=== PATIENT | male | born 1980 | race Caucasian/White ===

== ENCOUNTER 2017-09-02 10:59 | Emergency (ER) | payer MEDICARE, SELFPAY ==
[2017-09-02 11:01] VITALS: BP 127/71; PULSE 80; RESP 16; TEMP 36.9; O2SAT 100; BMI 26.3
--- NOTE | 2017-09-02 11:07 | ED.RN ---
pt has flat effect in triage and was unclear as to reason for visit. He stated that anxiety meds cause him to have suicidal thoughts. He currently has no thoughts of harming himself. Nurse providing care was informed about his odd behavior. Justyn Soriano rn
--- NOTE | 2017-09-02 11:21 | ED.RN ---
PT TAKES MANY DIFFERENT COMBINATIONS OF VITAMINS, SUPPLEMENTS AND ESSENTIAL OILS.
--- NOTE | 2017-09-02 11:25 | CT_ITS ---
STUDY: CT ABDOMEN AND PELVIS WITHOUT CONTRAST REASON FOR EXAM: Male, 36 years old. Left lower quadrant abdominal pain. RADIATION DOSAGE (If Supplied By Facility): CTDIvol = ( 6.53 ) mGy, DLP = ( 345.98 ) mGycm TECHNIQUE: Transaxial images were obtained from the dome of the diaphragm to the symphysis pubis without oral contrast, and without intravenous contrast. Sagittal and coronal images were reconstructed. Individualized dose optimization techniques were used for this CT. COMPARISON: None. FINDINGS: The visualized lung bases are unremarkable. The visualized portions of the heart are within normal limits. Normal liver. Normal gallbladder and extrahepatic biliary system. Normal spleen. Normal pancreas. Normal bilateral adrenal glands. Normal right kidney. Normal left kidney. Normal visualized stomach. Is no evidence for dilated bowel, ascites or pneumoperitoneum. The small bowel has a grossly normal appearance. There are multiple colonic diverticula consistent with diverticulosis. Appears to be some abnormal thickening of the calix of the rectum and anal regions. The calix measure up to 6.8 mm in thickness. The appendix is visualized and appears normal. Normal abdominal aorta. Normal inferior vena cava. Normal retroperitoneum. Normal urinary bladder. Normal visualized prostate gland. There is a small umbilical hernia containing fat. Normal osseous structures. CT/Abdomen/Pelvis without Cont IMPRESSION: Nonspecific thickening of calix of the distal sigmoid colon and rectum. This could be the result of acute infection or inflammation. Chronic processes are also possible. Electronically Signed: Harriet Brownlee MD at 12:34 EST , Service support ,
--- NOTE | 2017-09-02 11:28 | ED.DCSUM_ITS ---
- ER Visit Summary Date of Service: 09/02/17 Chief Complaint: [] Lower abdominal for a few days history of constipation History of Present Illness: The patient is a 36 M [] reports that he has had lower abdominal pressure and constipation for a few days, he chronically uses rectal enemas to cleanse his colon and for treatment for what he describes as Lyme disease. He felt constipated the other day he took an enema he had a bowel movement and since then has had diarrhea and a sense of persistent pressure over suprapubic area he has been able to eat and drink his urinary habits have been normal. No fever no cough no other complaints Has no history of abdominal surgery or any GI elements Cates he has anxiety and Lyme disease, he was treated for the Lyme disease with multiple IV medications and other therapies, and now he believes because he has that diagnosis he needs to take vitamin supplements and cleanse his colon twice a week, [place] to some type of wellness clinic he does not have any established diagnoses except as above Physical Examination: [] His vitals are normal he is afebrile he is in no distress neck chest unremarkable abdomen soft there is no rebound guarding organomegaly exam is unremarkable the rectal exam shows runny stool no pain no masses no fullness, no fecal impaction, neurologically he is awake alert moving all 4, he points to his suprapubic area as the area of pressure but he indicates he is voiding urine normally, he has no rebound guarding organomegaly any area Test Results: [] Emergency Department Course and Treatment: [] Rather unusual complaint history profile as above, labs CT His labs are generally unremarkable see those reports, UA negative, the CT shows nothing acute nonspecific inflammation in the sigmoid that could be acute or chronic, again the patient is having no fever no white count, There is some notation in some of his records that he might have schizophrenia he is not believe he has a condition, I explained all the above to him I explained to him that he should stop using the enemas we have explained the concept of inflammatory bowel disorder, the need to follow-up he does not have a physician locally, he is referred to Dr. Barrera of surgery for further GI workup , he is referred to [facility] physician on-call he will stay in a bland diet return for change in symptoms Treatment Plan: [] Disposition: [] Home stable Impression: [] Nonspecific lower abdominal discomfort, history of chronic constipation, potential history for psychiatric condition such as schizophrenia This note was generated with [employer] dictation software. It may contain incorrect words, spelling, and punctuation that were not noted in review of the chart prior to signing ED Disposition - Plan for ED Patient: Chief Complaint: Abd Pain Referrals: Almas Lassiter [Primary Care Provider] -
[2017-09-02] MEDS: 0.9% Normal Saline 1,000 ML 125 ML IV (11:50)
[2017-09-02 11:59] LABS: Absolute Lymphocyte Count 0.87 X10^3/ul (0.83-4.51); Absolute Neutrophil Count 6.8 X10^3/uL (2.0-7.7); Eosinophil# 0.01 X10^3/uL; Eosinophils% 0.1 % (0-5); Hematocrit 42.9 % (40-54); Hemoglobin 14.9 g/dl (13.0-16.5); Lymphocyte # 0.87 X10^3/ul (4.0); Lymphocyte % 10.4 % (19-41); Mean Corp Hgb Conc 34.7 g/gl (32-36); Mean Corpuscular Hgb 30.3 pg (27.0-32.0); Mean Corpuscular Volume 87.2 fL (80-94); Mean Platelet Vol. 9.1 fl (6.2-12.0); Monocyte# 0.72 X10^3/uL; Monocyte% 8.6 % (0-10); Neutrophil # 6.78 X10^3/uL (2.7-7.7); Neutrophil % 80.8 % (47-70); Platelet Count 224 K/mm3 (150-450); RBC Distribution Width CV 13.2 % (11.6-14.6); RBC Distribution Width SD 41.8 fl (35.1-43.9); Red Blood Count 4.92 M/mm3 (4.6-6.2); White Blood Count 8.4 K/mm3 (4.4-11.0)
[2017-09-02 12:00] LABS: POSITIVE COUNT NO; POSITIVE DIFFERENTIAL NO; POSITIVE MORPHOLOGY NO
[2017-09-02 12:15] LABS: AST(SGOT) 16 U/L (15-37); Alanine Aminotransfer ALT/SGPT 37 U/L (12-78); Albumin, Serum 4.1 g/dL (3.4-5.0); Alkaline Phosphatase 51 U/L (45-117); Anion Gap 10 (5-15); BUN 11 mg/dL (7-18); BUN/Creat Ratio 10.6 RATIO (10-20); Bilirubin, Direct 0.27 mg/dL (0.00-0.30); Chloride 103 mmol/L (98-107); Creatinine, Serum 1.04 mg/dL (0.70-1.30); EST Glomerular Filtration Rate 85 mL/min (>60); Est Glom Filt Rate - Afr Amer 102 mL/min (>60); Estimated Creatinine Clearance 102.57 ml/min; Globulin 3.6 g/dL (2.2-4.2); Glucose 94 mg/dL (70-110); Lipase 163 U/L (73-393); Protein, Total 7.7 g/dL (6.4-8.2); Sodium Level 138 mmol/L (136-145)
[2017-09-02 12:33] LABS: Bacteria 0 SEEN /hpf (None Seen); Mucous, Urine 0 SEEN /hpf (<or=2+); Squamous Epithelial Cells - UA 0 SEEN /hpf (0-5)
[2017-09-02 12:37] LABS: Color, Urine Yellow (Yellow); Glucose, Dipstick Normal (Normal); Ketone-Dipstick 50 mg/dl (Negative); Leukocyte Esterase-Dipstick Negative /ul (Negative); Nitrite-Dipstick Negative (Negative); Occult Blood-Urine 150 /ul (Negative); Protein-Dipstick Negative (Negative); Urine Bilirubin Dipstick Negative (Negative); Urine Clarity Clear (Clear); Urine Urobilinogen Normal (Normal)
[2017-09-02 12:45] LABS: White Blood Cells 0-5 SEEN /hpf (0-5)
[2017-09-02 12:46] LABS: Red Blood Cells-Urine 0-5 SEEN /hpf (0-5)
--- NOTE | 2017-09-02 13:52 | ED.DEP ---
ED Disposition - Plan for ED Patient: Chief Complaint: Abd Pain Instructions: ED Abdominal Pain Unkn Cause Referrals: Almas Lassiter [Primary Care Provider] - Bree Barrera MD [STAFF PHYSICIAN] - Kenneth Benavidez MD [STAFF PHYSICIAN] -
[2017-09-02 14:08] VITALS: BP 125/70; PULSE 70; RESP 16; O2SAT 100
== END 2017-09-02 14:09 | disposition home or self-care (01) ==
LOC: ED 11:30
PROVIDERS: Emergency Provider Emergency Medicine; Family Provider Family Medicine; PCP Family Medicine
DX: R10.30 Lower abdominal pain, unspecified (principal); K59.09 Other constipation; K52.9 Noninfective gastroenteritis and colitis, unspecified; Z86.19 Personal history of other infectious and parasitic diseases
CPT/HCPCS: 74176; 80048; 80076; 81001; 83690; 85025; 87086; 96360; 96361; 99283; J7030; A4216